=== PATIENT | male | born 1960 | race Caucasian/White ===

== ENCOUNTER → 2018-08-07 | Outpatient (CLI) | payer BC ==
--- NOTE | 2018-08-07 12:37 | PCVCIMAG ---
APPROVED REPORT Study performed: 08/07/2018 11:32:53 Exam: Stress Echocardiogram Indication: CAD by suman Pichardo Patient Location: Echo lab Stress Nurse: Brenna Liao RN Room #: 2 Status: routine Ht: 6 ft 0 in HR: 68 bpm BP: 126/90 mmHg Rhythm: NSR Medical History Medical History: Hyperlipidemia Cardiac Risk Factors: Hyperlipidemia, FHX of CAD Previous Cardiac Procedures: none Pretest Chest Pain Characteristics: No chest pain Exercise History: Physically active Procedure The patient underwent an Exercise Stress Test using the Vincent Protocol. Blood pressure, heart rate, and EKG were monitored. An Echocardiogram was performed by concrete engineering technician in four stages in quad fashion. At peak stress, four selected images were obtained and placed side by side with resting images for comparison. Stress Test Details Stress Test: Exercise stress testing was performed using a Vincent protocol. HR Resting HR: 68 bpmMax Heart Rate (APMHR): 162 bpm Max HR Achieved: 155 bpmTarget HR (85% APMHR): 137 bpm % of APMHR: 95 Recovery HR: 80 bpm HR response to stress: Normal HR response to stress BP Resting BP: 126/90 mmHg Max BP: 168/80 mmHg Recovery BP: 110/82 mmHg BP response to stress: Normal blood pressure response to stress. ECG Resting ECG: Sinus Rhythm Stress ECG: Sinus Rhythm ST Change: Normal Maximum ST Deviation: 0 mm Arrhythmia: Rare PVCs Recovery ECG: Sinus Rhythm Recovery ST Change: Normal Recovery ST Deviation: 0 mm Recovery Arrhythmia: Rare PVCs Clinical Reason for Termination: Maximal effort Stress Symptoms: fatigue Exercise duration: 12 min 00 sec Highest Stage Achieved: Stage 4: 4.2 mph at 16% grade. Exercise capacity: 13.7 METs Overall Exercise Capacity for Age: Good Scale: Active Angina Score: None No complications. Stress ECG Conclusion The patient exercised according to the VINCENT protocol for 12:00 mins; achieving a work level of 13.7 METS. The resting heart rate of 68 bpm roberto carlos to a maximum heart rate of 155 bpm. This value represent 95% of the maximal, age-predicted heart rate. The resting blood pressure of 126/90 mmHg, roberto carlos to a maximum blood pressure of 168/80 mmHg. The exercise test was stopped due to fatigue. Alonzo Treadmill Score is 12.0 which is Low risk. Pre-Stress Echo The resting Echocardiogram showed normal left ventricular contractility with an estimated Ejection Fraction of about 55-60%. Normal wall motion in all segments on baseline images. Post-Stress Echo The stress Echocardiogram showed normal left ventricular contractility with an estimated Ejection Fraction of about 65-70%. Normal augmentation of wall motion in all segments on post stress images. Clinical No clinical or ECG evidence for ischemia. Conclusion Clinical Response: Non-ischemic Exercise Capacity: Superior Stress ECG Response: Non-ischemic Stress Echo Images: Non-ischemic No clinical, EKG or echocardiographic evidence for ischemia. No echocardiographic evidence for exercise induced ischemia. Normal stress echocardiogram with maximal exercise stress. <Conclusion> No clinical, EKG or echocardiographic evidence for ischemia. No echocardiographic evidence for exercise induced ischemia. Normal stress echocardiogram with maximal exercise stress.
== END | disposition home or self-care (01) ==
LOC: PCVCIMAG 11:17
PROVIDERS: ATTEND Internal Medicine
DX: I25.10 Atherosclerotic heart disease of native coronary artery without angina pectoris (principal); R93.1 Abnormal findings on diagnostic imaging of heart and coronary circulation; E78.5 Hyperlipidemia, unspecified
CPT/HCPCS: 93325; 93351